=== PATIENT | female | born 1980 | race Hispanic/Latino ===

== ENCOUNTER 2017-04-10 03:22 | Emergency (ER) | payer OTHER ==
[~2017-04-10] VITALS: Ht 162.6 cm; Wt 69.6 kg
[~2017-04-10 03:22] MED LIST: Chromagen, Feogen, M PO; Colace PO; FISH OIL PO; GLUCOPHAGE XR750 MG PO; Micronor PO; Motrin PO; PERCOCET 2.51 TABLET PO
[2017-04-10 05:47] VITALS: BP 148/99
[2017-04-10] MEDS ORDERED: FIORICET 50-301 EACH PO (05:52)
== END 2017-04-10 06:21 | disposition home or self-care (01) ==
LOC: EME 03:22
DX: G43.909 Migraine, unspecified, not intractable, without status migrainosus (principal); F17.200 Nicotine dependence, unspecified, uncomplicated
CPT/HCPCS: 99281; 99284; J1200; J1885; J2765; J7030